=== PATIENT | male | born 1950 | race Caucasian/White ===

== ENCOUNTER 2024-12-15 14:07 | Inpatient (IN) | payer OTHER, MEDICAID ==
[2024-12-15] VITALS (21 sets, daily range): BP systolic 62–152; BP diastolic 33–93; TEMP 96.5–96.7; O2SAT 96–100
[~2024-12-15] VITALS: Ht 172.7 cm; Wt 64.4 kg
[2024-12-15] MEDS ORDERED: ONDANSETRON 4 MG/2 ML VIAL ONE (14:38)
[2024-12-15] MEDS ORDERED: HYDROMORPHONE 1 MG/1 ML DISP.SYRIN ONE ×2 (14:38→18:05)
[2024-12-15 14:46] LABS: BASOPHILS % (AUTO) 0.8 % (0.0-2.0); EOSINOPHILS % (AUTO) 0.7 % (0.0-7.0); HEMATOCRIT 30.3 % (36.7-47.1); LYMPHOCYTES # (AUTO) 0.7 K/uL (0.8-4.8); LYMPHOCYTES % (AUTO) 11.7 % (20.5-51.5); MEAN CORPUSCULAR HEMOGLOBIN 32.4 uug (23.8-33.4); MEAN CORPUSCULAR HGB CONC 33 g/dL (32.5-36.3); MEAN CORPUSCULAR VOLUME 97.6 fL (73.0-96.2); MONOCYTES # (AUTO) 0.6 K/uL (0.1-1.30); MONOCYTES % (AUTO) 10.6 % (0.0-11.0); NEUTROPHILS # (AUTO) 4.6 K/uL (1.8-8.9); NEUTROPHILS % (AUTO) 76.2 % (38.5-71.5); PLATELET COUNT (AUTO) 164 K/uL (152-348); RED CELL DISTRIBUTION WIDTH 17.5 % (12.1-16.2); WHITE BLOOD COUNT (AUTO) 6.1 K/uL (3.6-10.2)
[2024-12-15] MEDS: HYDROMORPHONE 1 MG/1 ML DISP.SYRIN IV ONE ×2 (14:50→18:13)
[2024-12-15] MEDS: ONDANSETRON 4 MG/2 ML VIAL IV ONE (14:50)
[2024-12-15 14:53] LABS: DIFFERENTIAL COMMENT 1
[2024-12-15 14:58] LABS: CALCIUM 7.8 mg/dL (8.5-10.1); CARBON DIOXIDE 22 mmol/L (21-32); CHLORIDE 120 mmol/L (98-107); CREATININE 1.8 mg/dL (0.6-1.3); GLUCOSE 140 mg/dL (74-106); POTASSIUM 4.4 mmol/L (3.5-5.1); SODIUM SERUM 150 mmol/L (136-145); UREA NITROGEN, BLOOD 38 mg/dL (7-18)
[2024-12-15 14:59] LABS: AMMONIA 41 umol/L (11-32)
[2024-12-15 15:04] LABS: ALANINE AMINOTRANSFERASE 63 U/L (16-63); ALBUMIN 1.9 g/dL (3.4-5.0); ALKALINE PHOSPHATASE 137 U/L (50-136); ASPARTATE AMINOTRANSFERASE 114 U/L (15-37); BILIRUBIN,DIRECT 0.7 mg/dL (0.0-0.2); BILIRUBIN,TOTAL 1.2 mg/dL (0.2-1.0); LIPASE 25 U/L (16-77); TOTAL PROTEIN, SERUM 5.2 g/dL (6.4-8.2)
[2024-12-15 15:08] LABS: LACTIC ACID 4.5 mmol/L (0.4-2.0)
[2024-12-15] MEDS ORDERED: LACTULOSE 20 G/30 ML LIQUID UDC ONE (15:52)
[2024-12-15] MEDS ORDERED: PHYTONADIONE 10 MG/1 ML AMPUL ONE (15:52)
[2024-12-15] MEDS: PHYTONADIONE 10 MG/1 ML AMPUL SQ ONE (16:00)
[2024-12-15] MEDS: LACTULOSE 20 G/30 ML LIQUID UDC PO ONE (16:01)
[2024-12-15 17:56] LABS: TOTAL VOLUME,BODY FLUID 600 mL; WBC, BODY FLUID 1520 /cu. mm (0-200/cu.mm)
[2024-12-15 17:58] LABS: PH, BODY FLUID 7.5
[2024-12-15] MEDS: DAPTOMYCIN IV SCH (18:00)
[2024-12-15] MEDS: NORMAL SALINE IV SCH (18:00)
[2024-12-15] MEDS ORDERED: MEROPENEM 1GM/NS 100ML IVPB **ER PYXIS ONLY IV ONE (18:05)
[2024-12-15] MEDS: IV NS 1000 ML 1,000 ML IV ONE (18:12)
[2024-12-15] MEDS: MEROPENEM 1 G in IV NORMAL SALINE 100 ML IV SCH (18:13)
[2024-12-15 18:22] LABS: MONOCYTES,BODY FLUID 5 %
[2024-12-15] MEDS ORDERED: CIPROFLOXACIN IV 200 ML IV ONE (19:28)
[2024-12-15] MEDS: CIPROFLOXACIN IV 400 MG in PREMIXED 1 EACH IV SCH (19:32)
[2024-12-15] MEDS ORDERED: NOREPINEPHRINE BITARTRATE 32 MG in IV NORMAL SALINE 218 ML IV PRN (21:15)
[2024-12-15] MEDS: IV D5 1/2 NS 1000 ML 1,000 ML IV PRN (21:40)
[2024-12-15] MEDS: HYDROMORPHONE 1 MG/1 ML DISP.SYRIN IV PRN (23:14)
[2024-12-15] MEDS: ALBUTEROL SULFATE 2.5 MG/3 ML NEBU NEB PRN (23:15)
[2024-12-15] MEDS: NOREPINEPHRINE BITARTRATE 4 MG/4 ML VIAL IV ONE (23:33)
[2024-12-15] MEDS: NOREPINEPHRINE BITARTRATE 32 MG in IV NORMAL SALINE 218 ML IV PRN (23:59)
[2024-12-16] VITALS (115 sets, daily range): BP systolic 42–171; BP diastolic 13–141; TEMP 94–97; O2SAT 76–100
[2024-12-16] MEDS: ONDANSETRON 4 MG/2 ML VIAL IV PRN (03:14)
[2024-12-16 05:46] LABS: IRON, SERUM 65 ug/dL (50-175)
[2024-12-16 06:27] LABS: ALANINE AMINOTRANSFERASE 479 U/L (16-63); ALBUMIN 1.5 g/dL (3.4-5.0); ALKALINE PHOSPHATASE 120 U/L (50-136); ASPARTATE AMINOTRANSFERASE 965 U/L (15-37); BILIRUBIN,TOTAL 2.1 mg/dL (0.2-1.0); CALCIUM 8.3 mg/dL (8.5-10.1); CHLORIDE 121 mmol/L (98-107); CREATININE 3.1 mg/dL (0.6-1.3); GLUCOSE 98 mg/dL (74-106); MAGNESIUM 2.4 mg/dL (1.8-2.4); NT-PRO BNP 1493 pg/mL (0-125); SODIUM SERUM 154 mmol/L (136-145); TOTAL PROTEIN, SERUM 4.3 g/dL (6.4-8.2); UREA NITROGEN, BLOOD 36 mg/dL (7-18)
[2024-12-16 06:45] LABS: CARBON DIOXIDE 8 mmol/L (21-32); PHOSPHOROUS 9.6 mg/dL (2.5-4.9); POTASSIUM 5.7 mmol/L (3.5-5.1)
[2024-12-16 06:50] LABS: BASOPHILS % (AUTO) 0.2 % (0.0-2.0); DIFFERENTIAL COMMENT 0; EOSINOPHILS % (AUTO) 0.1 % (0.0-7.0); LYMPHOCYTES # (AUTO) 1.3 K/uL (0.8-4.8); LYMPHOCYTES % (AUTO) 6.1 % (20.5-51.5); MEAN CORPUSCULAR HEMOGLOBIN 32.1 uug (23.8-33.4); MEAN CORPUSCULAR HGB CONC 29 g/dL (32.5-36.3); MEAN CORPUSCULAR VOLUME 109.2 fL (73.0-96.2); MONOCYTES # (AUTO) 1.4 K/uL (0.1-1.30); MONOCYTES % (AUTO) 6.8 % (0.0-11.0); NEUTROPHILS % (AUTO) 86.8 % (38.5-71.5); PLATELET COUNT (AUTO) 142 K/uL (152-348); WHITE BLOOD COUNT (AUTO) 20.7 K/uL (3.6-10.2)
[2024-12-16 06:51] LABS: HEMOGLOBIN 7.4 g/dL (12.5-16.3); RED BLOOD CELL COUNT(AUTO) 2.29 MIL/uL (4.06-5.63)
[2024-12-16 07:42] LABS: ABG HCO3 3.7 mmol/L (21.0-28.0); ABG PCO2 21.6 mmHg (35.0-48.0); ABG PH 6.856 (7.350-7.450); ABG PO2 132.2 mmHg (83.0-108.0); ABG SITE LEFT FEMORAL; ABG TOTAL HEMOGLOBIN 8.2 G/dL (13.5-17.5); AaDO2 95.7 mmHg; COHb 0.3 % (0.5-1.5); MetHb 0.4 % (0.0-1.5); O2Hb 95.7 % (94.0-98.0)
[2024-12-16] MEDS ORDERED: CALCIUM CHLORIDE 1 GM/10 ML DISP.SYRIN IVP ONE (08:15)
[2024-12-16] MEDS: INSULIN REGULAR, HUMAN 1000 UNIT/10 ML VIAL IV ONE (08:33)
[2024-12-16] MEDS: CALCIUM CHLORIDE 1 GM in IV NORMAL SALINE 100 ML IV ONE (08:34)
[2024-12-16] MEDS: VANCOMYCIN IV 1,000 MG in IV DEXTROSE 5% 250 ML IV ONE (08:43)
[2024-12-16] MEDS: PANTOPRAZOLE SODIUM 40 MG VIAL IV SCH (08:47)
[2024-12-16] MEDS ORDERED: CIPROFLOXACIN IV 400 MG in PREMIXED 1 EACH IV SCH (09:00)
[2024-12-16] MEDS ORDERED: MEROPENEM 500 MG in IV NORMAL SALINE 100 ML IV SCH (09:00)
[2024-12-16] MEDS ORDERED: MEROPENEM 500 MG in IV NORMAL SALINE 50 ML IV SCH (09:00)
[2024-12-16] MEDS: LORAZEPAM 2 MG/1 ML VIAL IV PRN (09:02)
[2024-12-16] MEDS: SODIUM ZIRCONIUM CYCLOSILICATE 10 GM POWD.PACK PO ONE (09:07)
[2024-12-16] MEDS: SODIUM BICARBONATE 8.4% 150 MEQ in IV D5W 1000ML 1,000 ML IV PRN (09:26)
[2024-12-16] MEDS: SODIUM BICARBONATE 8.4% 50 MEQ/50 ML DISP.SYRIN IV ONE ×2 (09:43→09:51)
[2024-12-16] MEDS: MEROPENEM 500 MG in IV NORMAL SALINE 50 ML IV SCH (09:49)
[2024-12-16 10:33] LABS: HEMATOCRIT 22.3 % (36.7-47.1)
[2024-12-16 11:08] LABS: HEMOGLOBIN 6.5 g/dL (12.5-16.3)
[2024-12-16 11:49] LABS: AMMONIA 170 umol/L (11-32)
[2024-12-16 11:59] LABS: ALANINE AMINOTRANSFERASE 903 U/L (16-63); ALBUMIN 1.5 g/dL (3.4-5.0); ALKALINE PHOSPHATASE 161 U/L (50-136); ASPARTATE AMINOTRANSFERASE 1948 U/L (15-37); BILIRUBIN,DIRECT 1.1 mg/dL (0.0-0.2); BILIRUBIN,TOTAL 2.3 mg/dL (0.2-1.0); CHLORIDE 115 mmol/L (98-107); CREATININE 3.2 mg/dL (0.6-1.3); GLUCOSE 119 mg/dL (74-106); SODIUM SERUM 151 mmol/L (136-145); TOTAL PROTEIN, SERUM 4.4 g/dL (6.4-8.2); UREA NITROGEN, BLOOD 37 mg/dL (7-18)
[2024-12-16 12:00] LABS: ACETAMINOPHEN 4.5 ug/mL (10-30)
[2024-12-16 12:17] LABS: CARBON DIOXIDE 9 mmol/L (21-32); POTASSIUM 6.5 mmol/L (3.5-5.1)
[2024-12-16] MEDS ORDERED: DESMOPRESSIN INJ 30 MCG in IV NORMAL SALINE 50 ML IV ONE (12:45)
[2024-12-16] MEDS ORDERED: PROPOFOL 100 ML IV PRN (13:00)
[2024-12-16] MEDS: DESMOPRESSIN INJ 20 MCG in IV NORMAL SALINE 50 ML IV ONE (13:26)
[2024-12-16] MEDS: PHYTONADIONE 10 MG/1 ML AMPUL IV ONE (13:26)
[2024-12-16] MEDS: PROPOFOL 100 ML IV PRN (13:28)
[2024-12-16] MEDS ORDERED: ROCURONIUM BROMIDE 50 MG/5 ML VIAL ONE (13:30)
[2024-12-16] MEDS ORDERED: ETOMIDATE 20 MG/10 ML VIAL ONE (13:30)
[2024-12-16] MEDS: ACETAMINOPHEN 325 MG TABLET PO ONE (14:15)
[2024-12-16] MEDS: diphenhydrAMINE 50 MG/1 ML VIAL IV ONE ×3 (14:15→19:49)
[2024-12-16 14:40] LABS: *RHEUMATOID FACTOR SCREEN POSITIVE (NEGATIVE)
[2024-12-16 15:02] LABS: HEMATOCRIT 19.8 % (36.7-47.1); HEMOGLOBIN 5.6 g/dL (12.5-16.3)
[2024-12-16 15:06] LABS: ABG BASE EXCESS -24.8 mmol/L (-2.0-3.0); ABG HCO3 5.8 mmol/L (21.0-28.0); ABG PCO2 29.2 mmHg (35.0-48.0); ABG PH 6.918 (7.350-7.450); ABG PO2 410.7 mmHg (83.0-108.0); ABG SITE ALINE; AaDO2 99.6 mmHg; COHb 0.3 % (0.5-1.5); MetHb 0.5 % (0.0-1.5); VT, ABG 500 mL
[2024-12-16] MEDS: ALBUMIN HUMAN 25% 50 ML IV ONE (15:11)
[2024-12-16] MEDS: PHENYLEPHRINE IV 100 MG in IV NORMAL SALINE 240 ML IV PRN (15:13)
[2024-12-16] MEDS: ACETAMINOPHEN 650 MG SUPP.RECT RC PRN (15:35)
[2024-12-16 15:53] LABS: HIV-1 p24 ANTIGEN NON REACTIVE (NONREACTIVE); HIV-1/2 ANTIBODY NON REACTIVE (NONREACTIVE)
[2024-12-16] MEDS ORDERED: SWABABLE VALVE TRANSFER SET EA MC ONE (16:26)
[2024-12-16] MEDS ORDERED: IV NORMAL SALINE 250 ML IV ONE (16:26)
[2024-12-16] MEDS ORDERED: IOHEXOL 350 100 ML INFUS..BTL ONE (16:26)
[2024-12-16 16:40] LABS: BAND % (MANUAL) 10 % (0-10); EOSINOPHILS % (MANUAL) 1 % (0-8); LYMPHOCYTES % (MANUAL) 10 % (20-40); MONOCYTES % (MANUAL) 7 % (2-10); NEUTROPHILS % (MANUAL) 72 % (42-75); PLATELET ESTIMATE DECREASED
[2024-12-16 16:41] LABS: ANISOCYTOSIS 2+
[2024-12-16] MEDS: OCTREOTIDE ACETATE 50 MCG/1 ML ML IV ONE (16:46)
[2024-12-16] MEDS: OCTREOTIDE ACETATE DRIP 500 MCG in IV NORMAL SALINE 99 ML IV SCH (16:47)
[2024-12-16 18:26] LABS: HEMATOCRIT 23.9 % (36.7-47.1)
[2024-12-16 18:48] LABS: HEMOGLOBIN 6.9 g/dL (12.5-16.3)
[2024-12-16 19:01] LABS: CALCIUM 8.9 mg/dL (8.5-10.1); CHLORIDE 118 mmol/L (98-107); CREATININE 3.6 mg/dL (0.6-1.3); GLUCOSE 120 mg/dL (74-106); MAGNESIUM 2.6 mg/dL (1.8-2.4); SODIUM SERUM 153 mmol/L (136-145); UREA NITROGEN, BLOOD 40 mg/dL (7-18)
[2024-12-16 19:07] LABS: CARBON DIOXIDE 9 mmol/L (21-32); POTASSIUM 7.2 mmol/L (3.5-5.1)
[2024-12-16 19:08] LABS: PHOSPHOROUS 14.1 mg/dL (2.5-4.9)
[2024-12-16] MEDS: methylPREDNISolone SOD SUCC 125 MG/2 ML VIAL IV ONE (19:48)
[2024-12-16] MEDS: FAMOTIDINE. 20 MG/2 ML VIAL IV ONE (19:49)
[2024-12-16 22:18] LABS: ABG BASE EXCESS -18.4 mmol/L (-2.0-3.0); ABG HCO3 10.8 mmol/L (21.0-28.0); ABG PCO2 40.4 mmHg (35.0-48.0); ABG PH 7.046 (7.350-7.450); ABG PO2 41.9 mmHg (83.0-108.0); ABG SITE LEFT RADIAL; ABG TOTAL HEMOGLOBIN 7.8 G/dL (13.5-17.5); COHb 0.3 % (0.5-1.5); MetHb 0.3 % (0.0-1.5); O2Hb 72.4 % (94.0-98.0); VT, ABG 500 mL
[2024-12-16 22:21] LABS: BASOPHILS # (AUTO) 0.2 K/UL (0.0-0.2); BASOPHILS % (AUTO) 0.8 % (0.0-2.0); LYMPHOCYTES # (AUTO) 1.4 K/uL (0.8-4.8); LYMPHOCYTES % (AUTO) 6.3 % (20.5-51.5); MEAN CORPUSCULAR HEMOGLOBIN 29.4 uug (23.8-33.4); MEAN CORPUSCULAR HGB CONC 31 g/dL (32.5-36.3); MEAN CORPUSCULAR VOLUME 95.4 fL (73.0-96.2); MONOCYTES # (AUTO) 0.9 K/uL (0.1-1.30); MONOCYTES % (AUTO) 4.2 % (0.0-11.0); NEUTROPHILS # (AUTO) 19.8 K/uL (1.8-8.9); NEUTROPHILS % (AUTO) 88.7 % (38.5-71.5); PLATELET COUNT (AUTO) 77 K/uL (152-348); RED CELL DISTRIBUTION WIDTH 24.8 % (12.1-16.2); WHITE BLOOD COUNT (AUTO) 22.4 K/uL (3.6-10.2)
[2024-12-16 22:24] LABS: RED BLOOD CELL COUNT(AUTO) 2.14 MIL/uL (4.06-5.63)
[2024-12-16 22:33] LABS: DIFFERENTIAL COMMENT 1; HEMOGLOBIN 6.3 g/dL (12.5-16.3)
[2024-12-16 22:34] LABS: HEMATOCRIT 20.4 % (36.7-47.1)
[2024-12-16] MEDS: ALBUMIN HUMAN 25% 50 ML IV PRN (23:14)
[2024-12-17] VITALS (56 sets, daily range): BP systolic 40–219; BP diastolic 23–167; TEMP 94–97.8; O2SAT 71–100
[2024-12-17 05:27] LABS: BAND % (MANUAL) 4 % (0-10); LYMPHOCYTES % (MANUAL) 7 % (20-40); MONOCYTES % (MANUAL) 1 % (2-10); MYELOCYTES % 1 % (0-0); NEUTROPHILS % (MANUAL) 87 % (42-75)
[2024-12-17 05:28] LABS: ANISOCYTOSIS 1+; PLATELET ESTIMATE DECREASED
[2024-12-17 07:38] LABS: ABG BASE EXCESS -16.6 mmol/L (-2.0-3.0); ABG HCO3 10.7 mmol/L (21.0-28.0); ABG PH 7.155 (7.350-7.450); ABG PO2 156.9 mmHg (83.0-108.0); ABG SITE ALINE; ABG TOTAL HEMOGLOBIN 5.6 G/dL (13.5-17.5); AaDO2 98.5 mmHg; COHb 0.8 % (0.5-1.5); MetHb 1.4 % (0.0-1.5); O2Hb 96.5 % (94.0-98.0); VT, ABG 500 mL
[2024-12-17 07:42] LABS: BASOPHILS # (AUTO) 0.1 K/UL (0.0-0.2); BASOPHILS % (AUTO) 0.5 % (0.0-2.0); DIFFERENTIAL COMMENT 0; EOSINOPHILS # (AUTO) 0.1 K/uL (0.0-0.7); EOSINOPHILS % (AUTO) 0.5 % (0.0-7.0); LYMPHOCYTES % (AUTO) 5.7 % (20.5-51.5); MEAN CORPUSCULAR HEMOGLOBIN 31.4 uug (23.8-33.4); MEAN CORPUSCULAR HGB CONC 33 g/dL (32.5-36.3); MEAN CORPUSCULAR VOLUME 94.6 fL (73.0-96.2); MONOCYTES # (AUTO) 1.3 K/uL (0.1-1.30); MONOCYTES % (AUTO) 7.7 % (0.0-11.0); NEUTROPHILS # (AUTO) 14.9 K/uL (1.8-8.9); NEUTROPHILS % (AUTO) 85.6 % (38.5-71.5); RED CELL DISTRIBUTION WIDTH 19.4 % (12.1-16.2); WHITE BLOOD COUNT (AUTO) 17.4 K/uL (3.6-10.2)
[2024-12-17 07:43] LABS: AMMONIA 62 umol/L (11-32)
[2024-12-17 07:46] LABS: RED BLOOD CELL COUNT(AUTO) 1.61 MIL/uL (4.06-5.63)
[2024-12-17 07:48] LABS: HEMOGLOBIN 5.1 g/dL (12.5-16.3)
[2024-12-17 07:49] LABS: HEMATOCRIT 15.2 % (36.7-47.1); PLATELET COUNT (AUTO) 31 K/uL (152-348)
[2024-12-17 07:59] LABS: ALBUMIN 1.8 g/dL (3.4-5.0); ALKALINE PHOSPHATASE 714 U/L (50-136); BILIRUBIN,TOTAL 4.1 mg/dL (0.2-1.0); CALCIUM 7.2 mg/dL (8.5-10.1); CARBON DIOXIDE 12 mmol/L (21-32); CHLORIDE 107 mmol/L (98-107); CREATININE 3.6 mg/dL (0.6-1.3); GLUCOSE 149 mg/dL (74-106); MAGNESIUM 2.3 mg/dL (1.8-2.4); SODIUM SERUM 144 mmol/L (136-145); TOTAL PROTEIN, SERUM 3.7 g/dL (6.4-8.2); UREA NITROGEN, BLOOD 31 mg/dL (7-18)
[2024-12-17 08:07] LABS: AFP, TUMOR MARKER 40.2 ng/mL (0.0-8.4); CARBOHYDRATE ANTIGEN, 19-9 <2 U/mL (0-35); CARCINOEMBRYONIC AG (CEA) 5.8 ng/mL (0.0-4.7)
[2024-12-17 08:28] LABS: LACTIC ACID 19.3 mmol/L (0.4-2.0)
[2024-12-17] MEDS ORDERED: CALCIUM CHLORIDE 1 GM/10 ML DISP.SYRIN IVP ONE (08:30)
[2024-12-17] MEDS ORDERED: DEXTROSE 50% 50 ML DISP.SYRIN IV ONE (08:30)
[2024-12-17] MEDS ORDERED: SODIUM BICARBONATE 8.4% 50 MEQ/50 ML DISP.SYRIN IV ONE (09:00)
[2024-12-17 09:10] LABS: *IMMUNOGLOBULIN G, SERUM 1293 mg/dL (603-1613); IMMUNOGLOBULIN A, SERUM 62 mg/dL (61-437); IMMUNOGLOBULIN M, SERUM 56 mg/dL (15-143)
[2024-12-17] MEDS ORDERED: INSULIN REGULAR, HUMAN 1000 UNIT/10 ML VIAL IV ONE (09:30)
[2024-12-17 09:52] LABS: POTASSIUM 7.8 mmol/L (3.5-5.1)
[2024-12-17 10:00] LABS: ALANINE AMINOTRANSFERASE 3215 U/L (16-63); PHOSPHOROUS 15.3 mg/dL (2.5-4.9)
[2024-12-17 10:54] LABS: LYMPHOCYTES % (MANUAL) 4 % (20-40); NEUTROPHILS % (MANUAL) 87 % (42-75)
[2024-12-17 10:55] LABS: EOSINOPHILS % (MANUAL) 1 % (0-8); MONOCYTES % (MANUAL) 8 % (2-10); PLATELET ESTIMATE MARKED DECREASED
[2024-12-17 12:09] LABS: HEPATITIS B SURFACE AB, QUAL Non Reactive (.); HEPATITIS B SURFACE AG Negative (Negative); HEPATITIS C VIRUS ANTIBODY Reactive (Non Reactive)
[2024-12-17 18:07] LABS: *ANTI-SCLERODERMA-70 AB <0.2 AI (0.0-0.9); *RNP ANTIBODIES <0.2 AI (0.0-0.9); *SJOGREN'S ANTI-SS-A <0.2 AI (0.0-0.9); *SJOGREN'S ANTI-SS-B <0.2 AI (0.0-0.9); *SMITH ANTIBODIES <0.2 AI (0.0-0.9); ANTI-DNA(DS) AB, QN <1 IU/mL (0-9); ANTI-NUCLEAR AB DIRECT Negative (Negative)
== END 2024-12-17 14:47 | DRG 871 ==
LOC: ER 14:07 → ICU IN 20:57 → CCU 21:40
PROVIDERS: ADMIT Internal Medicine; ATTEND Internal Medicine
PROC: 0W9G3ZX Drainage of Peritoneal Cavity, Percutaneous Approach, Diagnostic (ICD-10-PCS; principal; 2024-12-15)
PROC: 0BH17EZ Insertion of Endotracheal Airway into Trachea, Via Natural or Artificial Opening (ICD-10-PCS; 2024-12-16)
PROC: 5A1935Z Respiratory Ventilation, Less than 24 Consecutive Hours (ICD-10-PCS; 2024-12-16)
PROC: 06HY33Z Insertion of Infusion Device into Lower Vein, Percutaneous Approach (ICD-10-PCS; 2024-12-16)
PROC: 30243K1 Transfusion of Nonautologous Frozen Plasma into Central Vein, Percutaneous Approach (ICD-10-PCS; 2024-12-16)
PROC: 30243N1 Transfusion of Nonautologous Red Blood Cells into Central Vein, Percutaneous Approach (ICD-10-PCS; 2024-12-16)
PROC: 5A1D70Z Performance of Urinary Filtration, Intermittent, Less than 6 Hours Per Day (ICD-10-PCS; 2024-12-16)
PROC: 06HY33Z Insertion of Infusion Device into Lower Vein, Percutaneous Approach (ICD-10-PCS; 2024-12-16)
PROC: 5A12012 Performance of Cardiac Output, Single, Manual (ICD-10-PCS; 2024-12-17)
DX: A41.9 Sepsis, unspecified organism (principal); D65 Disseminated intravascular coagulation [defibrination syndrome]; J96.01 Acute respiratory failure with hypoxia; K65.2 Spontaneous bacterial peritonitis; K66.1 Hemoperitoneum; N17.0 Acute kidney failure with tubular necrosis; I21.A1 Myocardial infarction type 2; K72.00 Acute and subacute hepatic failure without coma; R65.21 Severe sepsis with septic shock; D61.818 Other pancytopenia; R18.8 Other ascites; E87.20 Acidosis, unspecified; E87.0 Hyperosmolality and hypernatremia; D62 Acute posthemorrhagic anemia; B94.2 Sequelae of viral hepatitis; K74.69 Other cirrhosis of liver; K72.10 Chronic hepatic failure without coma; K76.82 Hepatic encephalopathy; Z91.041 Radiographic dye allergy status; R16.0 Hepatomegaly, not elsewhere classified; E83.51 Hypocalcemia; K80.20 Calculus of gallbladder without cholecystitis without obstruction; I46.9 Cardiac arrest, cause unspecified; E87.5 Hyperkalemia; E88.09 Other disorders of plasma-protein metabolism, not elsewhere classified; E86.1 Hypovolemia; F19.11 Other psychoactive substance abuse, in remission; R57.1 Hypovolemic shock; I70.0 Atherosclerosis of aorta; R57.8 Other shock; D53.9 Nutritional anemia, unspecified
CPT/HCPCS: 36415; 36600; 70030-TC; 70450; 71045; 82105; 82378; 82784; 82803; 83010; 83550; 83605; 83615; 83690; 83735; 83986; 84100; 84155; 84165; 84443; 84484; 85018; 85025; 85610; 85730; 86038; 86301; 86334; 86430; 86706; 86803; 86850; 86900; 86901; 86920; 87040; 87340; 87806; 92950; 94002; 94003; 94640; 94664; 94760; 99082-TC; A4606; A4663; G0378; J0744; J0878; J1171; J1200; J1815; J2060; J2185; J2354; J2405; J2470; J2597; J2919; J3370; J3430; J3490; J7040; J7050; J7070; P9016; P9047; P9059; Q9967